=== PATIENT | female | born 1955 | race Caucasian/White ===

== ENCOUNTER 2016-05-24 10:18 | Emergency (ER) | payer SELFPAY ==
--- NOTE | 2016-05-24 11:33 | EDPHY ---
H & P Time Seen by Provider: 05/24/16 11:10 HPI/ROS: CHIEF COMPLAINT: Right hand discoloration and numbness HISTORY OF PRESENT ILLNESS: Patient is a 60-year-old female with multiple medical problems including COPD, high cholesterol and hypertension who presents to the emergency department with discoloration and numbness of her right hand. She woke this morning with numbness over all of her fingers in the right hand. She noted white discoloration on half of all of her fingers. "It is like when your hand is really cold." She thought maybe she slept on it wrong. She the water granddaughter to school. The coloration has now improved. She still has mild numbness over all of her fingers. She has no proximal arm discoloration or pain. She has chronic right shoulder pain. She denies headache or neck pain. She has no visual change. She denies other focal neurologic deficit. REVIEW OF SYSTEMS: My complete review of systems is negative except as mentioned in the HPI. Past Medical/Surgical History: Includes hypertension, high cholesterol, possible diabetes, COPD Past surgical history: Includes bowel resection, appendectomy, hysterectomy, right hand reconstructive surgery, left knee surgery Social history: The patient smokes. The patient had been living in the [facility] and is now staying with her family in [place]. She is not regularly follow up with the primary care physician. Smoking Status: Current every day smoker Physical Exam: 36.6, 145/82, 108, 17, 92% on room air GENERAL: Well-appearing, in no acute distress, alert. HEENT: Eyes normal to inspection, normal pharynx, no signs of dehydration. NECK: No thyromegaly, no lymphadenopathy, supple. RESPIRATORY: Coarse breath sounds throughout, no rales, rhonchi or wheezing. CVS: Regular rate and rhythm, no rubs, murmurs, or gallops. ABDOMEN: Soft, nontender, nondistended, no organomegaly. BACK: Normal to inspection, no CVA tenderness. SKIN: Normal color, no rash, warm, dry. No pallor. EXTREMITIES: No pedal edema, no calf tenderness. Patient's bilateral upper extremities appear normal. UE: Her skin is pink B hands. Brisk capillary refill B. Normal radial and ulnar pulses B. patient describes mildly decreased sensation in right palmar aspect of her fingers. Patient does have minimal clubbing. Normal motor exam. Patient has a normal brachial pulse bilaterally. Patient has no cords. NEURO/PSYCH: Alert and oriented x3, normal mood and affect. No obvious cranial nerve deficit. Constitutional: Initial Vital Signs Temperature (C) 36.6 C 05/24/16 10:29 Heart Rate 108 H 05/24/16 10:29 Respiratory Rate 17 05/24/16 10:29 Blood Pressure 145/82 H 05/24/16 10:29 O2 Sat (%) 92 05/24/16 10:29 O2 Delivery Mode Room Air Allergies/Adverse Reactions: honey Allergy (Verified 05/24/16 10:29) strawberry Allergy (Verified 05/24/16 10:29) sulfur dioxide Allergy (Verified 05/24/16 10:29) Home Medications: Medication Instructions Recorded NK [No Known Home Meds] 05/24/16 Medical Decision Making - Diagnostics EKG Interpretation: EKG shows normal sinus rhythm, normal rate, normal axis, normal intervals. There are no ST or T-wave abnormalities. EKG is normal as interpreted by me. ED Course/Re-evaluation: In the emergency department I discussed possible etiologies with the patient. I discussed the plan and answered all her questions. Carotid ultrasound: Please refer the dictated report by Dr. Ross Espino. No significant occlusion or abnormality. Head CT: No acute disease noted. Please refer the dictated report. I rechecked the patient. She was doing well. She had no focal deficits. Neurovascularly intact distally in her extremities. 1445: I went and evaluated the CT imaging with Dr. Mandujano. There is no focal occlusion or abnormality to the mid hand. The the timing of the contrast did not allow visualization through the complete vessel. On recheck the patient. She was doing well. She had no complaints. No focal neurologic deficits. Neurovascular intact distally. She was given warnings prior to leaving. She will return with worsening symptoms. Differential Diagnosis: My differential includes but is not limited to arterial occlusion, venous occlusion, disc herniation, brachial plexus injury, neurapraxia, CVA, dissection - Data Points Laboratory Results: Laboratory Results 05/24/16 11:55 05/24/16 11:55 05/24/16 05/24/16 05/24/16 11:55 11:55 11:55 WBC 7.48 10^3/uL 10^3/uL (3.80-9.50) RBC 5.13 10^6/uL 10^6/uL (4.18-5.33) Hgb 15.3 g/dL g/dL (12.6-16.3) Hct 46.5 % % (38.0-47.0) MCV 90.6 fL fL (81.5-99.8) MCH 29.8 pg pg (27.9-34.1) MCHC 32.9 g/dL g/dL (32.4-36.7) RDW 12.6 % % (11.5-15.2) Plt Count 218 10^3/uL 10^3/uL (150-400) MPV 11.2 fL fL (8.7-11.7) Neut % (Auto) 53.0 % % (39.3-74.2) Lymph % (Auto) 36.5 % % (15.0-45.0) [place] % (Auto) 7.1 % % (4.5-13.0) Eos % (Auto) 2.4 % % (0.6-7.6) Baso % (Auto) 0.7 % % (0.3-1.7) Nucleat RBC Rel Count 0.0 % % (0.0-0.2) Absolute Neuts (auto) 3.97 10^3/uL 10^3/uL (1.70-6.50) Absolute Lymphs (auto) 2.73 10^3/uL 10^3/uL (1.00-3.00) Absolute Monos (auto) 0.53 10^3/uL 10^3/uL (0.30-0.80) Absolute Eos (auto) 0.18 10^3/uL 10^3/uL (0.03-0.40) Absolute Basos (auto) 0.05 10^3/uL 10^3/uL (0.02-0.10) Absolute Nucleated RBC 0.00 10^3/uL 10^3/uL (0-0.01) Immature Gran % 0.3 % % (0.0-1.1) Immature Gran # 0.02 10^3/uL 10^3/uL (0.00-0.10) PT 12.8 SEC SEC (12.0-15.0) INR 0.97 (0.83-1.16) APTT 30.8 SEC SEC (23.0-38.0) Sodium 144 mEq/L mEq/L (134-144) Potassium 4.3 mEq/L mEq/L (3.5-5.2) Chloride 105 mEq/L mEq/L (97-110) Carbon Dioxide 29 mEq/l mEq/l (22-31) Anion Gap 10 mEq/L mEq/L (8-16) BUN 23 mg/dL mg/dL (7-23) Creatinine 0.6 mg/dL mg/dL (0.6-1.0) Estimated GFR > 60 Glucose 101 mg/dL H mg/dL (70-100) Calcium 9.5 mg/dL mg/dL (8.5-10.4) Departure - Departure Disposition: Home, Routine, Self-Care Clinical Impression: Paresthesia and pain of right extremity Condition: Good Instructions: Paresthesia (ED) Additional Instructions: Return with increasing numbness, weakness, headache, neck pain or any other concerns. Your CT angiogram of your arm did not show any clot. Your ultrasound of the neck was unremarkable. Referrals: [facility] [Provider Group] - 5-7 days, call for appt. Magy Villareal MD [Medical Doctor] - 5-7 days, call for appt.
--- NOTE | 2016-05-24 11:50 | CPEKG ---
Heart Rate: 91 RR Interval: 659 P-R Interval: 152 QRSD Interval: 70 QT Interval: 344 QTC Interval: 424 P [place]: 81 QRS [place]: 35 T Wave [place]: 73 EKG Severity - NORMAL ECG - EKG Impression: SINUS RHYTHM Electronically Signed By: Reshma Levy 24-May-2016 15:18:44
[2016-05-24 12:04] LABS: % IMMATURE GRANULYOCYTES 0.3 % (0.0-1.1); ABSOLUTE IMMATURE GRANULOCYTES 0.02 10^3/uL (0.00-0.10); ADD DIFF? NO; ADD MORPH? NO; ADD SCAN? NO; ATYPICAL LYMPHOCYTE FLAG 20 (0-99); FRAGMENT RBC FLAG 0 (0-99); HEMATOCRIT 46.5 % (38.0-47.0); HEMOGLOBIN 15.3 g/dL (12.6-16.3); LEFT SHIFT FLG 0 (0-99); LIPEMIA HEMOLYSIS FLAG 80 (0-99); MEAN CELL HEMOGLOBIN 29.8 pg (27.9-34.1); MEAN CELL HEMOGLOBIN CONCENTR. 32.9 g/dL (32.4-36.7); MEAN CELL VOLUME 90.6 fL (81.5-99.8); MEAN PLATELET VOLUME 11.2 fL (8.7-11.7); PLATELET CLUMPS FLAG 0 (0-99); PLATELET COUNT 218 10^3/uL (150-400); RED BLOOD CELL COUNT 5.13 10^6/uL (4.18-5.33); RED CELL DISTRIBUTION WIDTH 12.6 % (11.5-15.2)
[2016-05-24 12:14] LABS: INR 0.97 (0.83-1.16); PROTIME(PATIENT) 12.8 SEC (12.0-15.0)
[2016-05-24 12:15] LABS: APTT 30.8 SEC (23.0-38.0)
[2016-05-24 12:21] LABS: ANION GAP 10 mEq/L (8-16); CALCIUM 9.5 mg/dL (8.5-10.4); CARBON DIOXIDE 29 mEq/l (22-31); CHLORIDE 105 mEq/L (97-110); CREATININE 0.6 mg/dL (0.6-1.0); GLOMERULAR FILTRATION RATE > 60; GLUCOSE 101 mg/dL (70-100); POTASSIUM 4.3 mEq/L (3.5-5.2); SODIUM 144 mEq/L (134-144)
[2016-05-24] MEDS ORDERED: IOPAMIDOL (ISOVUE 370) 100 ML BTL IV ONE (12:32)
[2016-05-24 14:48] VITALS: BP 119/90; PULSE 97; TEMP 98.2; O2SAT 90
[2016-05-24 14:59] VITALS: RESP 16
== END 2016-05-24 15:15 | disposition home or self-care (01) ==
DX: R20.2 Paresthesia of skin (principal); I10 Essential (primary) hypertension; J44.9 Chronic obstructive pulmonary disease, unspecified; F17.200 Nicotine dependence, unspecified, uncomplicated
CPT/HCPCS: Q9967

== ENCOUNTER 2016-08-16 21:14 | Inpatient (IN) | payer MEDICAID ==
--- NOTE | 2016-08-16 21:33 | CPEKG ---
Heart Rate: 110 RR Interval: 545 P-R Interval: 124 QRSD Interval: 76 QT Interval: 324 QTC Interval: 439 P [place]: 82 QRS [place]: 18 T Wave [place]: 65 EKG Severity - OTHERWISE NORMAL ECG - EKG Impression: SINUS TACHYCARDIA Electronically Signed By: Edwardo Edwards 16-Aug-2016 23:13:29
[2016-08-16] MEDS ORDERED: methylPREDNISolone SOD SUCC 125 MG/2 ML VIAL IVP ONE (21:40)
[2016-08-16] MEDS ORDERED: ALBUTEROL 3 ML DEYVIAL IH ONE (21:40)
[2016-08-16] MEDS ORDERED: IPRATROPIUM/ALBUTEROL 3 ML DEYVIAL IH ONE (21:40)
[2016-08-16] MEDS ORDERED: NS 500 ML IV ONE (21:40)
--- NOTE | 2016-08-16 21:45 | EDPHY ---
H & P Time Seen by Provider: 08/16/16 21:37 HPI/ROS: HPI COPD exacerbation, cough, fever. 61-year-old female by ambulance from home. Patient has a long history of COPD. Patient presents with complaint of worsening cough, fever, difficulty breathing over the last 2-3 days. She reports she quit smoking 2-3 days ago. She also complains of a swelling on the left lateral aspect of her neck. Cough noted to be productive of yellowish green sputum. ROS: Constitutional: As above, no chills. No weakness. Eyes: No discharge. No changes in vision. ENT: No sore throat. No nasal congestion or rhinorrhea. Respiratory: As above. Cardiac: No chest pain, no palpitations. Gastrointestinal: No abdominal pain, no vomiting, no diarrhea. Genitourinary: No hematuria. No dysuria or increased frequency with urination. Musculoskeletal: No back pain. No neck pain. No myalgias or arthralgias. As above. Skin: No rashes. Neurological: No headache. No focal weakness or altered sensation. Past medical history: Bowel resection, hysterectomy appendectomy, left knee surgery, right hand surgery. She is not regularly followed by primary care physician. Social history: Former smoker. She says she quit 2 days ago. She is currently living with her family. No alcohol. Physical Exam: General Appearance: Alert, dyspneic. Mildly anxious. This patient is responding to questions appropriately and in full sentences. This patient appears well-hydrated and well-nourished. Eyes: Pupils equal and round no pallor or injection. No lid edema, erythema or injection. Respiratory: There are no retractions, decreased air movement throughout. Scant rhonchi mid lung michael bilaterally. No tachypnea. Cardiovascular: Regular rate and rhythm. No murmur. Gastrointestinal: Abdomen is soft and nontender, no masses, bowel sounds normal. No focal tenderness at McBurney's point. No Love sign. Neurological: Motor sensory function is grossly intact. Cranial nerves are normal. Gait is normal. Skin: Warm and dry, no rashes. Musculoskeletal: Neck is supple and nontender. Extremities are symmetrical. All joints range without pain or impingement. Psychiatric: No agitation. No depression. Database: EKG: EKG time is 9:32 p.m.; EKG shows a narrow complex sinus tachycardia with a ventricular rate of 110. The [place], QRS, QT intervals are within normal limits. There are no ST-T wave changes indicative of ischemic or injury pattern. No evidence of right heart strain. Interpreted by me. Imaging: Chest x-ray PA and lateral; the cardiac mediastinal silhouette is unremarkable. No evidence of infiltrate or pneumothorax. Bronchitis. No other acute cardiopulmonary disease process noted. Interpreted by me. Procedures: Emergency department course: IV placed. She was placed on a construction skills teacher. She was placed on oxygen at 2 L by nasal cannula. She was sent for a PA and lateral chest x-ray from triage. EKG was performed. On return from x-ray she was started on albuterol/ Atrovent nebulizers x2. She was given 125 mg of IV Solu-Medrol. 10:45 p.m., patient re-evaluated. Feeling better at this time. Pulse oximetry on 2 and 0.5 L of nasal cannula oxygen 93 to 95%. No tachypnea. He remains mildly tachycardic of 105-110. She was borderline febrile in triage. She was started on IV Levaquin in the emergency department. Blood cultures were drawn. 10:55 p.m., spoke with on-call hospitalist, Dr. Bey, she accepts the patient for admission. The patient's remaining emergency department course under my care has been uneventful. She was admitted in stable condition to the hospitalist service. Differential Diagnosis: The differential diagnosis on this patient includes but is not limited to COPD exacerbation, bronchitis, pneumonia. This represents a partial list of diagnoses considered. These considerations are based on history, physical exam , past history, reassessment and diagnostic testing. Smoking Status: Current every day smoker Constitutional: Initial Vital Signs Temperature (C) 37.6 C 08/16/16 21:18 Heart Rate 112 H 08/16/16 21:18 Respiratory Rate 16 08/16/16 21:18 Blood Pressure 141/81 H 08/16/16 21:18 O2 Sat (%) 90 L 08/16/16 21:18 O2 Delivery Mode Room Air O2 (L/minute) 2 Allergies/Adverse Reactions: honey Allergy (Verified 05/24/16 10:29) Latex, Natural Rubber Allergy (Verified 08/16/16 21:18) strawberry Allergy (Verified 05/24/16 10:29) sulfur dioxide Allergy (Verified 05/24/16 10:29) Home Medications: Medication Instructions Recorded NK [No Known Home Meds] 05/24/16 Medical Decision Making - Diagnostics Imaging Results: Imaging Impressions Chest X-Ray 08/16/16 21:35 Impression: 1. Bronchitis/airways disease. 2. No definite focal pneumonia. - Data Points Laboratory Results: Laboratory Results 08/16/16 21:30 08/16/16 21:30 08/16/16 08/16/16 21:30 21:30 WBC 8.76 10^3/uL 10^3/uL (3.80-9.50) RBC 4.76 10^6/uL 10^6/uL (4.18-5.33) Hgb 14.3 g/dL g/dL (12.6-16.3) Hct 42.2 % % (38.0-47.0) MCV 88.7 fL fL (81.5-99.8) MCH 30.0 pg pg (27.9-34.1) MCHC 33.9 g/dL g/dL (32.4-36.7) RDW 12.6 % % (11.5-15.2) Plt Count 236 10^3/uL 10^3/uL (150-400) MPV 11.3 fL fL (8.7-11.7) Neut % (Auto) 58.0 % % (39.3-74.2) Lymph % (Auto) 29.2 % % (15.0-45.0) [place] % (Auto) 8.6 % % (4.5-13.0) Eos % (Auto) 2.7 % % (0.6-7.6) Baso % (Auto) 0.8 % % (0.3-1.7) Nucleat RBC Rel Count 0.0 % % (0.0-0.2) Absolute Neuts (auto) 5.08 10^3/uL 10^3/uL (1.70-6.50) Absolute Lymphs (auto) 2.56 10^3/uL 10^3/uL (1.00-3.00) Absolute Monos (auto) 0.75 10^3/uL 10^3/uL (0.30-0.80) Absolute Eos (auto) 0.24 10^3/uL 10^3/uL (0.03-0.40) Absolute Basos (auto) 0.07 10^3/uL 10^3/uL (0.02-0.10) Absolute Nucleated RBC 0.00 10^3/uL 10^3/uL (0-0.01) Immature Gran % 0.7 % % (0.0-1.1) Immature Gran # 0.06 10^3/uL 10^3/uL (0.00-0.10) Sodium 136 mEq/L mEq/L (134-144) Potassium 4.1 mEq/L mEq/L (3.5-5.2) Chloride 100 mEq/L mEq/L (97-110) Carbon Dioxide 25 mEq/l mEq/l (22-31) Anion Gap 11 mEq/L mEq/L (8-16) BUN 9 mg/dL mg/dL (7-23) Creatinine 0.7 mg/dL mg/dL (0.6-1.0) Estimated GFR > 60 Glucose 86 mg/dL mg/dL (70-100) Calcium 9.3 mg/dL mg/dL (8.5-10.4) Troponin I < 0.012 ng/mL ng/mL (0-0.034) NT-Pro-B Natriuret Pep 348 pg/mL H pg/mL (0-125) Medications Given: Discontinued Medications Albuterol (Proventil Neb) 6 ml IH EDNOW ONE Stop: 08/16/16 21:41 Last Admin: 08/16/16 21:50 Dose: Not Given Albuterol/Ipratropium (Duoneb) 6 ml I[facility] EDNOW ONE Stop: 08/16/16 21:41 Last Admin: 08/16/16 21:57 Dose: 6 ml Sodium Chloride (Ns) 500 mls @ 1,000 mls/hr IV ONCE ONE PRN Reason: Protocol Stop: 08/16/16 22:09 Last Admin: 08/16/16 21:57 Dose: 500 mls Methylprednisolone Sodium Succinate (Solu-Medrol) 125 mg IVP EDNOW ONE Stop: 08/16/16 21:41 Last Admin: 08/16/16 21:57 Dose: 125 mg Departure - Departure Disposition: [facility] Clinical Impression: COPD exacerbation, Bronchitis, Hypoxia Referrals: NONE *PRIMARY CARE P,. [Primary Care Provider] - As per Instructions
[2016-08-16 21:46] LABS: % IMMATURE GRANULYOCYTES 0.7 % (0.0-1.1); ABSOLUTE IMMATURE GRANULOCYTES 0.06 10^3/uL (0.00-0.10); ADD DIFF? NO; ADD MORPH? NO; ADD SCAN? NO; ATYPICAL LYMPHOCYTE FLAG 80 (0-99); FRAGMENT RBC FLAG 0 (0-99); HEMATOCRIT 42.2 % (38.0-47.0); HEMOGLOBIN 14.3 g/dL (12.6-16.3); LEFT SHIFT FLG 0 (0-99); LIPEMIA HEMOLYSIS FLAG 90 (0-99); MEAN CELL HEMOGLOBIN CONCENTR. 33.9 g/dL (32.4-36.7); MEAN CELL VOLUME 88.7 fL (81.5-99.8); MEAN PLATELET VOLUME 11.3 fL (8.7-11.7); PLATELET CLUMPS FLAG 0 (0-99); PLATELET COUNT 236 10^3/uL (150-400); RED BLOOD CELL COUNT 4.76 10^6/uL (4.18-5.33); RED CELL DISTRIBUTION WIDTH 12.6 % (11.5-15.2)
[2016-08-16 21:58] LABS: ANION GAP 11 mEq/L (8-16); CALCIUM 9.3 mg/dL (8.5-10.4); CARBON DIOXIDE 25 mEq/l (22-31); CHLORIDE 100 mEq/L (97-110); CREATININE 0.7 mg/dL (0.6-1.0); GLOMERULAR FILTRATION RATE > 60; GLUCOSE 86 mg/dL (70-100); POTASSIUM 4.1 mEq/L (3.5-5.2); SODIUM 136 mEq/L (134-144)
[2016-08-16 22:11] LABS: TROPONIN I < 0.012 ng/mL (0-0.034)
[2016-08-16] MEDS ORDERED: ONDANSETRON DISINTEGRATING 4 MG TAB PO PRN (23:15)
[2016-08-16] MEDS ORDERED: ONDANSETRON 4 MG/2 ML VIAL IVP PRN (23:15)
[2016-08-16] MEDS ORDERED: ACETAMINOPHEN 325 MG TAB PO PRN (23:15)
[2016-08-16] MEDS ORDERED: ALBUTEROL 3 ML DEYVIAL IH PRN (23:15)
--- NOTE | 2016-08-16 23:22 | PDGENHP ---
History and Physical - Chief Complaint shortness of breath - History of Present Illness Patient is a 61 year old female with COPD, CAD, ? chf who presents to the ED with complaint of shortness of breath. Patient states symptoms started about 3 days ago with initially nonproductive cough, generalized fatigue and lack of appetite. Over the following days she reports intermittent chills, generalized body aches and increasing shortness of breath, wheezing and cough, which became productive of yellow/green sputum. Today she felt significantly fatigued, weak and short of breath, so she decided to come to the ED for further evaluation. She denies any obvious recent sick contacts, recent travel or prolonged immobilization. On arrival to the ED, patient was afebrile, mildly tachycardic and hypoxic on room air. She had significant wheezing on exam, so she was given IV steroids, duonebs with significant improvement. CXR did not reveal any obvious infiltrate. EKG showed sinus tachycardia without obvious ischemia. Labs showed normal cbc, bmp and negative troponin. She was then admitted to the hospitalist service for further management. History Information - Allergies/Home Medication List Allergies/Adverse Reactions: honey Allergy (Verified 05/24/16 10:29) Latex, Natural Rubber Allergy (Verified 08/16/16 21:18) strawberry Allergy (Verified 05/24/16 10:29) sulfur dioxide Allergy (Verified 05/24/16 10:29) Home Medications: NK [No Known Home Meds] 05/24/16 [Last Taken Unknown] I have personally reviewed and updated: family history, medical history, social history, surgical history - Past Medical History Additional medical history: COPD. nonobstructive CAD. ? history of CHF. history of complicated small bowel obstruction - Surgical History Additional surgical history: ex-lap for SBO. BRANDON-BSO. appendectomy - Family History Positive for: non-pertinent - Social History Smoking Status: Current every day smoker (formerly 2-3 PPD x 20 years, now down to 5 cigarettes/day) Alcohol Use: None Drug Use: None Additional social history: Patient originally from [place], moved to [place] 1 year ago, lives with her daughter Review of Systems ROS: 10pt was reviewed & negative except for what was stated in HPI & below Physical Exam Temp Pulse Resp BP Pulse Ox 37.6 C 103 H 18 141/81 H 95 08/16/16 21:18 08/16/16 22:00 08/16/16 22:00 08/16/16 21:18 08/16/16 22:00 Constitutional: no apparent distress, appears nourished, not in pain Eyes: PERRL, anicteric sclera, EOMI Ears, Nose, Mouth, Throat: hearing normal, ears appear normal, no oral mucosal ulcers, dry mucous membranes Cardiovascular: regular rate and rhythym, no murmur, rub, or gallop, pulses symmetric bilaterally, No JVD, No edema Peripheral Pulses: 2+: dorsalis-pedis (R), dorsalis-pedis (L) Respiratory: no respiratory distress, no rales or rhonchi, expiratory wheeze ( faint exp wheezing diffusely) Gastrointestinal: normoactive bowel sounds, soft, non-tender abdomen, no palpable masses, No guarding, No rebound Genitourinary: no bladder fullness, no bladder tenderness Skin: warm, normal color, no rashes or abrasions, no fluctuance, no induration, No mottled Musculoskeletal: full muscle strength, no muscle tenderness, normal joint ROM, no joint effusions Neurologic: AAOx3, sensation intact bilaterally, CN II-XII Intact, No weakness, No numbness, No pronator drift, No facial droop Psychiatric: interacting appropriately, not anxious, not encephalopathic, thought process linear Lab Data & Imaging Review 08/16/16 21:30 08/16/16 21:30 WBC 8.76 10^3/uL (3.80-9.50) 08/16/16 21:30 RBC 4.76 10^6/uL (4.18-5.33) 08/16/16 21:30 Hgb 14.3 g/dL (12.6-16.3) 08/16/16 21:30 Hct 42.2 % (38.0-47.0) 08/16/16 21:30 MCV 88.7 fL (81.5-99.8) 08/16/16 21:30 MCH 30.0 pg (27.9-34.1) 08/16/16 21:30 MCHC 33.9 g/dL (32.4-36.7) 08/16/16 21:30 RDW 12.6 % (11.5-15.2) 08/16/16 21:30 Plt Count 236 10^3/uL (150-400) 08/16/16 21:30 MPV 11.3 fL (8.7-11.7) 08/16/16 21:30 Neut % (Auto) 58.0 % (39.3-74.2) 08/16/16 21:30 Lymph % (Auto) 29.2 % (15.0-45.0) 08/16/16 21:30 [place] % (Auto) 8.6 % (4.5-13.0) 08/16/16 21:30 Eos % (Auto) 2.7 % (0.6-7.6) 08/16/16 21:30 Baso % (Auto) 0.8 % (0.3-1.7) 08/16/16 21:30 Nucleat RBC Rel Count 0.0 % (0.0-0.2) 08/16/16 21:30 Absolute Neuts (auto) 5.08 10^3/uL (1.70-6.50) 08/16/16 21:30 Absolute Lymphs (auto) 2.56 10^3/uL (1.00-3.00) 08/16/16 21:30 Absolute Monos (auto) 0.75 10^3/uL (0.30-0.80) 08/16/16 21:30 Absolute Eos (auto) 0.24 10^3/uL (0.03-0.40) 08/16/16 21:30 Absolute Basos (auto) 0.07 10^3/uL (0.02-0.10) 08/16/16 21:30 Absolute Nucleated RBC 0.00 10^3/uL (0-0.01) 08/16/16 21:30 Immature Gran % 0.7 % (0.0-1.1) 08/16/16 21:30 Immature Gran # 0.06 10^3/uL (0.00-0.10) 08/16/16 21:30 Sodium 136 mEq/L (134-144) 08/16/16 21:30 Potassium 4.1 mEq/L (3.5-5.2) 08/16/16 21:30 Chloride 100 mEq/L (97-110) 08/16/16 21:30 Carbon Dioxide 25 mEq/l (22-31) 08/16/16 21:30 Anion Gap 11 mEq/L (8-16) 08/16/16 21:30 BUN 9 mg/dL (7-23) 08/16/16 21:30 Creatinine 0.7 mg/dL (0.6-1.0) 08/16/16 21:30 Estimated GFR > 60 08/16/16 21:30 Glucose 86 mg/dL (70-100) 08/16/16 21:30 Calcium 9.3 mg/dL (8.5-10.4) 08/16/16 21:30 Troponin I < 0.012 ng/mL (0-0.034) 08/16/16 21:30 NT-Pro-B Natriuret Pep 348 pg/mL (0-125) H 08/16/16 21:30 Visualized and Interpreted Chest x-ray results: Yes Chest X-Ray results: no infiltrate, other (possible bronchitis) Visualized and Interpreted EKG results: Yes EKG additional interpertation: sinus tachycardia, no obvious st/twave changes Assessment & Plan Assessment: Patient is a 61 year old female with COPD, CAD who presents to the ED with complaint of fever, chills, shortness of breath and wheezing. ED evaluation is consistent with acute copd exacerbation, likely triggered by an viral URI. Plan: # acute hypoxic respiratory failure Patient's presenting symptoms and improvement with steroids/nebs appears consistent with an acute COPD exacerbation. Differential also includes pneumonia , acs, pe. CXR is negative for obvious infiltrate, she has no leukocytosis on cbc. She is tachycardic, but has no other risk factors for PE. Will check D- dimer, TTE, respiratory viral panel and continue treatment for copd exacerbation. Will also continue azithromycin. - f/u resp viral panel - solumedrol 60 mg q6h - duonebs standing q6h, neb q2 prn - f/u d-dimer, TTE, monitor HR # CAD/?CHF Denies any chest pain, EKG is nonischemic, initial troponin is negative. Will continue to monitor troponins, EKGs and will f/u TTE. # dispo: admit to inpatient status for > 2 [place] stay # gen: regular diet DVT ppx: lovenox Full code
[2016-08-17 04:55] LABS: % IMMATURE GRANULYOCYTES 0.8 % (0.0-1.1); ABSOLUTE IMMATURE GRANULOCYTES 0.05 10^3/uL (0.00-0.10); ADD DIFF? NO; ADD MORPH? NO; ADD SCAN? NO; ATYPICAL LYMPHOCYTE FLAG 40 (0-99); FRAGMENT RBC FLAG 0 (0-99); HEMATOCRIT 39.2 % (38.0-47.0); HEMOGLOBIN 13.1 g/dL (12.6-16.3); LEFT SHIFT FLG 10 (0-99); LIPEMIA HEMOLYSIS FLAG 80 (0-99); MEAN CELL HEMOGLOBIN CONCENTR. 33.4 g/dL (32.4-36.7); MEAN CELL VOLUME 89.9 fL (81.5-99.8); MEAN PLATELET VOLUME 11.4 fL (8.7-11.7); PLATELET CLUMPS FLAG 0 (0-99); PLATELET COUNT 220 10^3/uL (150-400); RED BLOOD CELL COUNT 4.36 10^6/uL (4.18-5.33); RED CELL DISTRIBUTION WIDTH 12.7 % (11.5-15.2)
[2016-08-17 05:03] LABS: INR 1.1 (0.83-1.16); PROTIME(PATIENT) 14.1 SEC (12.0-15.0)
[2016-08-17 05:09] LABS: ANION GAP 9 mEq/L (8-16); CARBON DIOXIDE 24 mEq/l (22-31); CHLORIDE 105 mEq/L (97-110); CREATININE 0.6 mg/dL (0.6-1.0); GLOMERULAR FILTRATION RATE > 60; GLUCOSE 213 mg/dL (70-100); MAGNESIUM 2.2 mg/dL (1.6-2.3); POTASSIUM 4.3 mEq/L (3.5-5.2); SODIUM 138 mEq/L (134-144)
[2016-08-17 05:16] LABS: TROPONIN I < 0.012 ng/mL (0-0.034)
[2016-08-17 05:20] LABS: CREATINE KINASE-MB FRACTION < 0.22 ng/mL (0-3.19)
[2016-08-17] MEDS: IPRATROPIUM/ALBUTEROL 3 ML DEYVIAL IH SCH ×5 (05:27→21:26)
[2016-08-17] MEDS: methylPREDNISolone SOD SUCC 40 MG/ML VIAL IVP SCH ×3 (06:14→21:08)
[2016-08-17] MEDS: NS 1,000 ML IV SCH ×2 (06:14→22:55)
[2016-08-17] MEDS: AZITHROMYCIN IV 500 MG in D5W 250 ML IV SCH (08:46)
[2016-08-17] MEDS: ENOXAPARIN 40 MG/0.4 ML SYR SC SCH (08:55)
--- NOTE | 2016-08-17 09:25 | CPEKG ---
Heart Rate: 74 RR Interval: 811 P-R Interval: 148 QRSD Interval: 84 QT Interval: 408 QTC Interval: 453 P [place]: 73 QRS [place]: 51 T Wave [place]: 59 EKG Severity - BORDERLINE ECG - EKG Impression: SINUS RHYTHM EKG Impression: LOW VOLTAGE THROUGHOUT Electronically Signed By: Rajan Miramontes 17-Aug-2016 16:52:58
--- NOTE | 2016-08-17 10:54 | ECHO ---
[id number] + + [address] : : [place] [address] : : [phone] + + Adult Echocardiographic Report + -+ :Name: TEJA WRIGHT LStudy Date: 08/17/2016 09:51 AM : : Hospital Admission Number: [id number] Location: 14 6: :: 1955 Gender: Female Height: 67 in : :Age: 61 yrs Race: WH Weight: 180 lb : :Reason For Study: hypoxia : : BSA: 1.9 meters2 : :History: h/o chf : + -+ MMode/2D Measurements \T\ Calculations IVSd: 0.74 cm LVIDd: 4.3 cm FS: 42.1 % Ao root diam: LVPWd: 0.89 cm LVIDs: 2.5 cm EDV(Teich): 2.3 cm 83.1 ml ESV(Teich): 22.1 ml EF(Teich): 73.4 % LVLd ap4: 7.6 cm SV(MOD-sp4): EDV(MOD-sp4): 59.0 ml 100.0 ml LVLs ap4: 6.4 cm ESV(MOD-sp4): 41.0 ml EF(MOD-sp4): 59.0 % Normal Measurement Values: + + :LVIDd (3.5-5.7cm) IVSd (0.6-1.1cm) LVPWd (0.6-1.1cm) Aortic Root (2.0-3.7cm)Left Atrium (1.5-4.0cm): :LV Vol(d) (76-115ml) LV Vol(s) (29-48ml) Ejec Fraction (50-65%)PV Edgardo (0.6- 1.2m/s) TV Edgardo (0.4-1.0m/s) : :MV E [place]ardo (0.8-1.0m/s)MV A Edgardo (0.3-1.0m/s)LVOT Edg[place] (0.7-1.2m/s) Asc Ao Edgardo ( 0.9-1.8m/s) : + + Doppler Measurements \T\ Calculations MV E max edgardo: Ao V2 max: LV V1 max: PA V2 max: 90.3 cm/sec 94.1 cm/sec 81.4 cm/sec 60.8 cm/sec MV A max edgardo: Ao max PG: LV V1 max PG: PA max P.0 cm/sec 3.5 mmHg 2.7 mmHg 1.5 mmHg MV E/A: 1.1 MV dec time: 0.16 sec TR max edgardo: 245.0 cm/sec TR max P.0 mmHg RAP systole: 5.0 mmHg RVSP(TR): 29.0 mmHg Left Ventricle The left ventricle is normal in size and function. There is normal left ventricular wall thickness. Ejection Fraction = 65-70%. No regional wall motion abnormalities noted. Right Ventricle The right ventricle is normal in size and function. Atria The left atrial size is normal. Right atrial size is normal. Mitral Valve The mitral valve is normal in structure and function. There is no mitral valve stenosis. There is mild to moderate mitral regurgitation. Tricuspid Valve The tricuspid valve is normal in structure and function. There is no tricuspid stenosis. There is mild tricuspid regurgitation. Right ventricular systolic pressure is 29mmHg. Aortic Valve The aortic valve is trileaflet. There is no aortic stenosis. There is no aortic insufficiency. Pulmonic Valve The pulmonic valve is not well visualized. Great Vessels The aortic root is normal size. Pericardium/Pleural There is no pericardial effusion. Conclusion A two-dimensional transthoracic echocardiogram with M-mode and Doppler was performed. The study was technically difficult. The left ventricle is normal in size and function. Ejection Fraction = 65-70%. There is mild to moderate mitral regurgitation. There is mild tricuspid regurgitation. Right ventricular systolic pressure is 29mmHg. No prior echo Final Reading Physician: Jeffry Cummings signed on 08/17/2016 10:52 AM Ordering Physician: Lily Bey Performed By: Elizabeth Juárez
--- NOTE | 2016-08-17 11:12 | HOSPPROG ---
Hospitalist Progress Note Assessment/Plan: DIAGNOSES: -Acute hypoxemic respiratory failure -Pleuritic chest pain with high D-dimer -Absence of fever -History of COPD -History of nonobstructive coronary artery disease As she is really not very wheezy and still short of breath today and is now describing pleuritic chest pain with high D-dimer done yesterday in the ER will certainly need to rule out PE which is present in more than 10% of acute COPD exacerbations. I do not really see significant support for diagnosing a bacterial infection but waiting for viral respiratory panel PLANS: -viral respiratory panel testing has not been done yet so I reviewed with the nurse need to get sample for that -CT angiogram of chest is ordered to rule out PE -Continue bronchodilators and steroids at this point SUBJECTIVE: Slightly better than yesterday but remain short of breath with cough, no chills or sweats This morning she does describe pleuritic chest pain in the upper central anterior chest No leg pain or swelling Nothing that sounds like angina OBJECTIVE Vitals reviewed: Exam: alert oriented skin warm dry color ok resps not labored lungs clear BSs slightly diminished but without notably prolonged expiration; no wheeze rales or rhonchi heart regular abd soft nondistended nontender, bowel sounds present limbs warm, no edema iv site ok Objective: Vital Signs Temp Pulse Resp BP Pulse Ox 36.6 C 80 16 105/63 94 08/17/16 08:03 08/17/16 08:03 08/17/16 08:03 08/17/16 08:03 08/17/16 08:03 Laboratory Results 08/17/16 04:26 08/17/16 04:26 08/16/16 08/17/16 08/18/16 06:59 06:59 06:59 Intake Total 500 Balance 500 PT 14.1 SEC (12.0-15.0) 08/17/16 04:26 INR 1.10 (0.83-1.16) 08/17/16 04:26 - Time Spent With Patient Time Spent with Patient: greater than 35 minutes Time Spent with Patient: Greater than 35 minutes spent on this patients care, greater than 50% of time spent counseling, educating, and coordinating care regarding the above mentioned plan. ICD10 Worksheet Patient Problems: Problems Problem Status Onset Bronchitis Acute COPD exacerbation Acute Hypoxia Acute
[2016-08-17] MEDS ORDERED: IOPAMIDOL (ISOVUE 370) 100 ML BTL IV ONE (11:22)
[2016-08-17] MEDS: NICOTINE 14 MG/24 HR PATCH TD SCH (17:54)
[2016-08-17] MEDS: HYDROCODONE/APAP 5/325 TAB PO PRN (21:18)
[2016-08-18] MEDS: methylPREDNISolone SOD SUCC 40 MG/ML VIAL IVP SCH ×3 (05:07→21:17)
[2016-08-18] MEDS: IPRATROPIUM/ALBUTEROL 3 ML DEYVIAL IH SCH ×4 (05:16→20:42)
[2016-08-18] MEDS: HYDROCODONE/APAP 5/325 TAB PO PRN ×3 (08:24→22:19)
[2016-08-18] MEDS: NICOTINE 14 MG/24 HR PATCH TD SCH (08:24)
[2016-08-18] MEDS: ENOXAPARIN 40 MG/0.4 ML SYR SC SCH (08:25)
[2016-08-18] MEDS: AZITHROMYCIN IV 500 MG in D5W 250 ML IV SCH (09:29)
--- NOTE | 2016-08-18 14:51 | HOSPPROG ---
Hospitalist Progress Note Assessment/Plan: DIAGNOSES: -Acute hypoxemic respiratory failure -Pleuritic chest pain with high D-dimer -Absence of fever -History of COPD -History of nonobstructive coronary artery disease PE is ruled out [place] is ruled out She continues to have symptoms out of proportion to her exam, and now with the history as described below we need to do a coronary risk stratification. Will order a lexiscan stress (tomorrow as she has been drinking coffee) PLANS: -viral respiratory panel testing has not been done yet so I reviewed with the nurse need to get sample for that -CT angiogram of chest is ordered to rule out PE -Continue bronchodilators and steroids at this point SUBJECTIVE: yesterday's EKG was normal, and CT chest with no PE, some signs of emphysema resting dyspnea slightly better than yest today she does not have the pleuritic pain described yesterday however she now tells me that for past two months she has had marked exertional dyspnea accompanied by a chest pressure, can only go up 1/2 flight of stairs before stopping for those symptoms and has trouble getting across a room which is a notable change for her OBJECTIVE Vitals reviewed: mild regular tachycardia 102-104, otherwise stable without fever Exam: alert oriented skin warm dry color ok resps not labored lungs clear BSs slightly diminished but without notably prolonged expiration; no wheeze rales or rhonchi heart regular abd soft nondistended nontender, bowel sounds present limbs warm, no edema iv site ok Objective: Vital Signs Temp Pulse Resp BP Pulse Ox 36.6 C 80 16 101/57 L 94 08/18/16 11:50 08/18/16 11:50 08/18/16 11:50 08/18/16 11:50 08/18/16 11:50 Microbiology 08/17/16 10:55 Respiratory Panel (PCR) - Final Nasal, Sinus - [place] Viral Transport No Organism Detected Laboratory Results 08/17/16 04:26 08/17/16 04:26 08/17/16 08/18/16 08/19/16 06:59 06:59 06:59 Intake Total 500 1680 Balance 500 1680 PT 14.1 SEC (12.0-15.0) 08/17/16 04:26 INR 1.10 (0.83-1.16) 08/17/16 04:26 - Time Spent With Patient Time Spent with Patient: greater than 35 minutes Time Spent with Patient: Greater than 35 minutes spent on this patients care, greater than 50% of time spent counseling, educating, and coordinating care regarding the above mentioned plan. ICD10 Worksheet Patient Problems: Problems Problem Status Onset Bronchitis Acute COPD exacerbation Acute Hypoxia Acute
[2016-08-18] MEDS: NS 1,000 ML IV SCH (16:00)
[2016-08-19] MEDS: methylPREDNISolone SOD SUCC 40 MG/ML VIAL IVP SCH ×2 (05:07→13:52)
[2016-08-19] MEDS: NS 1,000 ML IV SCH (05:08)
[2016-08-19] MEDS: IPRATROPIUM/ALBUTEROL 3 ML DEYVIAL IH SCH ×4 (05:24→21:50)
[2016-08-19] MEDS ORDERED: REGADENOSON 0.4 MG/5 ML SYR IVP ONE (09:25)
--- NOTE | 2016-08-19 10:36 | CPR ---
[f rep st] NONINVASIVE CARDIAC PROCEDURE REPORT DATE OF PROCEDURE: 08/19/2016 PROCEDURE PERFORMED: Lexiscan Cardiolite stress test. INDICATIONS: Chest pain. Evaluate for cardiac ischemia. CONSENT: Signed. Risks, benefits, and alternatives discussed with patient. She wishes to proceed. TECHNICAL DIFFICULTIES: None. DESCRIPTION OF PROCEDURE: The patient was initially in normal sinus rhythm with a heart rate of 74 beats per minute and a resting blood pressure of 128/80. Her EKG demonstrated normal sinus rhythm, with no ST-T wave abnormalities. 0.4 mg of IV Lexiscan was infused over a standard 1 minute protocol. 25 millicuries of technetium-9 9m was then injected. The patient's heart rate increased to 120 beats per minute and blood pressure dropped to 135/82. There were no EKG changes at peak Lexiscan infusion. All of her vital signs returned to normal at the end of recovery. She had mild nausea ,but no chest pain with Lexiscan infusion. Cardiolite images are pending. FINAL IMPRESSION: 1. Indeterminate electrocardiogram portion of stress test secondary to inability to reach target he art rate. 2. Cardiolite images pending. COMPLICATIONS: None. /[id number]/MODL
[2016-08-19] MEDS: AZITHROMYCIN IV 500 MG in D5W 250 ML IV SCH (12:54)
[2016-08-19] MEDS: ENOXAPARIN 40 MG/0.4 ML SYR SC SCH (12:54)
[2016-08-19] MEDS: NICOTINE 14 MG/24 HR PATCH TD SCH (12:57)
--- NOTE | 2016-08-19 14:53 | HOSPPROG ---
Hospitalist Progress Note Assessment/Plan: DIAGNOSES: -Acute on chronic hypoxemic respiratory failure -chest pain with high D-dimer -Absence of fever -History of COPD -History of nonobstructive coronary artery disease PE is ruled out [place] is ruled out She continues to have symptoms out of proportion to her exam, and now with the history as described below we need to do a coronary risk stratification. To complete lexiscan/myocardial imaging tomorrow PLANS: heat and elevation for L arm; may need to replace IV, but needs iv present for imaging in am resting myocardial perfusion imaging tomorrow continue steroid and bronchodilators SUBJECTIVE: main complaint today is pain in L forearm proximal to her IV (this was a new cath placed last evening) pain started this afternoon, rated as severe by pt does not hurt when medications or flushes given OBJECTIVE Vitals reviewed: tachycardia resolved, pulse in 70s, otherwise stable without fever Exam: alert oriented skin warm dry color ok resps not labored lungs clear BSs slightly diminished but without notably prolonged expiration; no wheeze rales or rhonchi heart regular abd soft nondistended nontender, bowel sounds present limbs L arm peripheral IV looks ok, no phlebitis, cord, cellulitis, bleed or bruise, or other concerning findings iv site ok Objective: Vital Signs Temp Pulse Resp BP Pulse Ox 36.7 C 76 18 151/79 H 97 08/19/16 11:27 08/19/16 11:39 08/19/16 11:39 08/19/16 11:27 08/19/16 11:39 Laboratory Results 08/17/16 04:26 08/17/16 04:26 08/18/16 08/19/16 08/20/16 06:59 06:59 06:59 Intake Total 1680 630 Balance 1680 630 PT 14.1 SEC (12.0-15.0) 08/17/16 04:26 INR 1.10 (0.83-1.16) 08/17/16 04:26 ICD10 Worksheet Patient Problems: Problems Problem Status Onset Bronchitis Acute COPD exacerbation Acute Hypoxia Acute
[2016-08-19] MEDS: predniSONE 20 MG TAB PO SCH (18:06)
[2016-08-19] MEDS: HYDROCODONE/APAP 5/325 TAB PO PRN (22:20)
[2016-08-20] MEDS: HYDROCODONE/APAP 5/325 TAB PO PRN ×2 (02:41→20:39)
[2016-08-20] MEDS: NS 1,000 ML IV SCH (02:41)
[2016-08-20] MEDS: IPRATROPIUM/ALBUTEROL 3 ML DEYVIAL IH SCH ×4 (05:49→21:16)
[2016-08-20] MEDS: NICOTINE 14 MG/24 HR PATCH TD SCH (10:13)
[2016-08-20] MEDS: predniSONE 20 MG TAB PO SCH ×2 (10:13→17:49)
[2016-08-20] MEDS: ENOXAPARIN 40 MG/0.4 ML SYR SC SCH (10:15)
[2016-08-20] MEDS: AZITHROMYCIN IV 500 MG in D5W 250 ML IV SCH (10:15)
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
[2016-08-21] MEDS: IPRATROPIUM/ALBUTEROL 3 ML DEYVIAL IH SCH ×3 (06:13→16:43)
[2016-08-21] MEDS: ENOXAPARIN 40 MG/0.4 ML SYR SC SCH (09:02)
[2016-08-21] MEDS: NICOTINE 14 MG/24 HR PATCH TD SCH (09:03)
[2016-08-21] MEDS: predniSONE 20 MG TAB PO SCH ×2 (09:03→18:06)
[2016-08-21] MEDS: AZITHROMYCIN IV 500 MG in D5W 250 ML IV SCH (09:03)
[2016-08-21] MEDS: HYDROCODONE/APAP 5/325 TAB PO PRN ×2 (11:13→22:32)
--- NOTE | 2016-08-21 17:22 | HOSPPROG ---
Hospitalist Progress Note Assessment/Plan: DIAGNOSES: -Acute on chronic hypoxemic respiratory failure / COPD exacerbation -chest pain with high D-dimer no PE on CT and no pneumonia -exertional CP, ruled out [place], no ischemia on lexiscan imaging -Absence of fever -History of nonobstructive coronary artery disease -severe deconditioning and gait instability -situational depression At this time it is hard to tell how close she is to baseline with her COPD but I suspect fairly close. She is not really able to ambulate well at all on room air, and she does not at present have any insurance to get home O2. I did speak to on of our respiratory therapists who says usually the home O2 companies request that patients use credit cards to pay for O2 while waiting for insurance (she is medicaid pending but it is not clear how soon that will come thru, ? by end of month). Will see if supervisor home restoration service has any thoughts on how to help get O2 for pt w pending insurance. PLANS: -at this time she is unstable for discharge due to inability to ambulate, due to deconditioning and copd -will have her spend more time in chair and do a few more walks tonight -continue current medications -she would be a candidate for SNF but has no insurance -home O2 will be indicated but with no insurance she will have trouble with that also At discharge will refer her to [facility] as they can offer better help with cost of medications and other services SUBJECTIVE: main complaint today is pain in L forearm proximal to her IV (this was a new cath placed last evening) pain started this afternoon, rated as severe by pt does not hurt when medications or flushes given OBJECTIVE Vitals reviewed: tachycardia resolved, pulse in 70s, otherwise stable without fever Exam: alert oriented skin warm dry color ok resps not labored lungs clear BSs slightly diminished but without notably prolonged expiration; no wheeze rales or rhonchi heart regular abd soft nondistended nontender, bowel sounds present limbs L arm peripheral IV looks ok, no phlebitis, cord, cellulitis, bleed or bruise, or other concerning findings iv site ok I have reviewed nuclear myocardial images w Dr Mandujano. No signs of ischemia. There is some thinning which could be old [place] which seems unlikely with EF of 70% , or more likely artifact. Objective: Vital Signs Temp Pulse Resp BP Pulse Ox 36.8 C 84 20 133/72 H 93 06/20/17 15:23 08/21/16 16:44 08/21/16 16:44 08/21/16 15:23 08/21/16 16:44 Laboratory Results 08/17/16 04:26 08/17/16 04:26 08/20/16 08/21/16 08/22/16 06:59 06:59 06:59 Intake Total 1300 Output Total 200 2850 Balance 1100 -2850 PT 14.1 SEC (12.0-15.0) 08/17/16 04:26 INR 1.10 (0.83-1.16) 08/17/16 04:26 ICD10 Worksheet Patient Problems: Problems Problem Status Onset Bronchitis Acute COPD exacerbation Acute Hypoxia Acute
[2016-08-21] MEDS: IPRATROPIUM HFA INHALER IH SCH (20:53)
[2016-08-21] MEDS: ALBUTEROL 200 PUFFS/18 GM MDI IH SCH (20:54)
[2016-08-22] MEDS: ALBUTEROL 200 PUFFS/18 GM MDI IH SCH ×6 (04:30→21:04)
[2016-08-22] MEDS: IPRATROPIUM HFA INHALER IH SCH ×4 (05:29→21:04)
[2016-08-22 07:37] VITALS: TEMP 97.8
[2016-08-22] MEDS: HYDROCODONE/APAP 5/325 TAB PO PRN ×2 (07:45→15:18)
[2016-08-22] MEDS: predniSONE 20 MG TAB PO SCH (07:45)
[2016-08-22] MEDS: ENOXAPARIN 40 MG/0.4 ML SYR SC SCH (09:20)
[2016-08-22] MEDS: NICOTINE 14 MG/24 HR PATCH TD SCH (09:21)
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
[2016-08-22 15:15] VITALS: BP 105/63
[2016-08-22 16:33] VITALS: PULSE 71; RESP 20
[2016-08-22 16:54] VITALS: O2SAT 84
--- NOTE | 2016-08-23 07:31 | GDS ---
[f rep st] DISCHARGE SUMMARY DISCHARGE DIAGNOSES: 1. Acute and possibly chronic hypoxemic respiratory failure secondary to chronic obstructive pulmon lizzette disease. 2. An acute exacerbation of chronic obstructive pulmonary disease. 3. Nonobstructive coronary artery disease. 4. Depression. IMAGING STUDIES/PROCEDURES: 1. Echocardiogram, August 16, showed a normal left ventricular ejection fraction of 65% to 70%. Mild to moderate mitral regurgitation, mild tricuspid regurgitation. Right ventricular systolic pressur e of 29. 2. CT pulmonary angiogram, August 17, was negative for pulmonary embolism though showed findings cons istent with emphysema and bronchitis. 3. Nuclear medicine myocardial perfusion scan, August 20, showed normal left ventricular ejection fra ction of 70% without wall motion abnormalities, without evidence of ischemia. CONSULTATIONS: None. HISTORY OF DETAILS: Please see the history and physical dated August 16. In brief the patient is a 61-year-old female, with history of COPD and coronary artery disease, pres ented to the emergency department with shortness of breath. She was admitted to the hospital for ac ayaan exacerbation of COPD and associated hypoxemia. HOSPITAL COURSE: The patient was admitted to the medical-surgical unit. She was treated with IV st eroids and nebulizers. She completed a 5 day course of azithromycin. She also completed 6 days of steroid burst therapy which will not be continued at discharge. Given her persistent symptoms, she underwent further coronary risk stratification with a negative Lexiscan as above. Her wheezing had essentially resolved at the time of discharge; however, she remained hypoxemic requiring 2 L of oxyg en. She was able to get on Medicaid and thus home oxygen was ordered at discharge. DISPOSITION: Patient was discharged home in stable condition. FOLLOWUP: Patient is to follow up with the [facility], to establish primary care. DISCHARGE MEDICATIONS: Please see [facility] for complete updated outpatient medication list. New medications on discharge include; 1. Albuterol inhaler. 2. Advair 250/50, 1 puff inhaled twice daily. 3. Ipratropium 2 puffs inhaled 4 times daily. 4. NicoDerm patch 14 mg, #14. /[id number]/MODL
== END 2016-08-22 22:16 | disposition home or self-care (01) | DRG 190 ==
LOC: OBSVTOIN 23:05 → F1N 08-17 00:14 → F3E 08-17 17:25
PROVIDERS: ADMIT Internal Medicine; ATTEND Internal Medicine
DX: J44.1 Chronic obstructive pulmonary disease with (acute) exacerbation (principal); J96.01 Acute respiratory failure with hypoxia; F17.210 Nicotine dependence, cigarettes, uncomplicated; I25.10 Atherosclerotic heart disease of native coronary artery without angina pectoris; F32.9 Major depressive disorder, single episode, unspecified
CPT/HCPCS: 96365; 97161-GP; 97166-GO; A9500; J0456; J1650; J1956; J2785; Q9967

== ENCOUNTER 2017-02-21 18:54 | Emergency (ER) | payer MEDICAID ==
[2017-02-21] MEDS ORDERED: IBUPROFEN 600 MG TAB PO ONE ×2 (19:28→19:29)
--- NOTE | 2017-02-21 19:46 | EDPHY ---
H & P Stated Complaint: fall, L side pain Time Seen by Provider: 02/21/17 19:12 HPI/ROS: Chief Complaint: Left side pain status post fall HPI: 61-year-old woman was walking her grandchildren home from school today which is not ability eyes landing on her left hand side. She did not hit her head. She had no loss of consciousness. She did get herself with the left hand. She has been complaining of upper back pain and left-sided chest pain since the fall. No shortness of breath. She does wear oxygen for COPD. No abdominal pain. No nausea or vomiting. She has been ambulating with pain in her mid back. No numbness or weakness. Is not on any blood thinning medications. Does not hurt to take a deep breath. ROS: 10 point Review of Systems is negative except as noted in the HPI. PMH: COPD Social History: Remote history of smoking, no alcohol, no recreational drug use Family History: non-contributory Physical Exam: Gen: Awake, Alert, No Distress HEENT: Nose: no rhinorrhea Eyes: PERRLA, EOMI Mouth: Moist mucosa Neck: Supple, no JVD Chest: Left lateral rib tenderness to palpation., lungs clear to auscultation Heart: S1, S2 normal, no murmur Abd: Soft, non-tender, no guarding Back: no CVA tenderness, she is midline tenderness about T7 with moderate left paraspinal tenderness, no lumbar tenderness Ext: no edema, non-tender Skin: no rash Neuro: CN II-XII intact, Sensation grossly intact, Strength 5/5 in bilateral upper and lower extremities - Personal History Current Tetanus/Diphtheria Vaccine: Yes Current Tetanus Diphtheria and Acellular Pertussis (TDAP): Yes - Medical/Surgical History Hx Asthma: No Hx Chronic Respiratory Disease: Yes Hx Diabetes: No Hx Cardiac Disease: No Hx Renal Disease: No Hx Cirrhosis: No Hx Alcoholism: No Hx HIV/AIDS: No Hx Splenectomy or Spleen Trauma: No Other PMH: PSHx: "2 ft of bowels removed", SBO, appendectomy, hysterectomy, R hand reconstructive sx, L knee sx, COPD - Social History Smoking Status: Current some day smoker Constitutional: Initial Vital Signs Temperature (C) 3 C L 02/21/17 18:59 Heart Rate 89 02/21/17 18:59 Respiratory Rate 28 H 02/21/17 18:59 Blood Pressure 132/91 H 02/21/17 18:59 O2 Sat (%) 95 02/21/17 18:59 O2 Delivery Mode Nasal Cannula Allergies/Adverse Reactions: honey Allergy (Verified 02/21/17 18:58) Latex, Natural Rubber Allergy (Verified 02/21/17 18:58) strawberry Allergy (Verified 02/21/17 18:58) sulfur dioxide Allergy (Verified 02/21/17 18:58) Home Medications: Medication Instructions Recorded Acetaminophen [Tylenol ES 500 mg 500 - 1,000 mg PO Q6 PRN 08/17/16 (*)] Albuterol [Ventolin Hfa Inhaler] 1 - 2 puffs IH Q4HRS PRN #1 mdi 08/22/16 Fluticasone/Salmeter 250/50Mcg 1 puffs IH BID #1 disk 08/22/16 [Advair 250/50 (*)] Ipratropium [Atrovent Hfa (*)] 2 puffs IH QID #1 mdi 08/22/16 Medical Decision Making - Diagnostics Imaging Results: Imaging Impressions Chest X-Ray 02/21/17 19:20 Impression: Nothing acute identified. Thoracic Spine X-Ray 02/21/17 19:21 Impression: Nothing acute identified. If suspicion is high for an occult compression, then noncontrast MRI could be performed to assess for bone marrow edema. Imaging: I viewed and interpreted images myself ED Course/Re-evaluation: No acute findings on x-rays. Patient is improved with ibuprofen. Will discharge with follow-up with primary care physician. Return for any concerns. - Data Points Medications Given: Discontinued Medications Ibuprofen (Motrin) 600 mg PO EDNOW ONE Stop: 02/21/17 19:30 Last Admin: 02/21/17 19:45 Dose: 600 mg Departure - Departure Disposition: Home, Routine, Self-Care Clinical Impression: Chest wall contusion, Back pain Condition: Good Instructions: Chest Wall Pain (ED), Back Pain (ED) Additional Instructions: Take ibuprofen, 600 mg, 3 times a day. You may also take acetaminophen, 1000 mg every 6 hours. Make sure to remain active. Did do not lay in bed or sit in a chair for long periods. It is important to remain active and keep your back moving in order to improve. Please see the attached back exercise instructions. Follow up with primary care physician in 3-4 days for further evaluation. Return to the emergency department for increasing pain, shortness of breath, fevers, chills, cough, or any other concerns. Referrals: Ana Laura Lewis, PAC [Primary Care Provider] - As per Instructions
[2017-02-21 21:36] VITALS: BP 117/64; PULSE 79; RESP 18; TEMP 98.1; O2SAT 99
== END 2017-02-21 21:36 | disposition home or self-care (01) ==
DX: S20.219A Contusion of unspecified front wall of thorax, initial encounter (principal); J44.9 Chronic obstructive pulmonary disease, unspecified; F17.200 Nicotine dependence, unspecified, uncomplicated; Z91.040 Latex allergy status; W18.39XA Other fall on same level, initial encounter; Y99.8 Other external cause status; Y93.01 Activity, walking, marching and hiking

== ENCOUNTER → 2017-03-27 | Outpatient (CLI) | payer MEDICAID | LOC: FLAB 16:44 | DX: M51.36 Other intervertebral disc degeneration, lumbar region (principal); M25.551 Pain in right hip ==

== ENCOUNTER 2017-07-20 16:41 | Emergency (ER) | payer MEDICAID ==
--- NOTE | 2017-07-20 16:49 | EDPHY ---
H & P Time Seen by Provider: 07/20/17 16:47 HPI/ROS: Chief complaint. Tongue swelling HPI. 62-year-old female with multiple complaints. She knows mild tongue swelling yesterday. She has had no trouble swallowing or eating. She also has diarrhea that began yesterday. She has had at least 1 week of sharp stabbing left chest pain that is more present with watching television and no change with breathing or exertion. She has had a cough that is productive of yellowish sputum. No fever. No shortness of breath. She does use 24/7 oxygen at home. She has no sinus drainage as well. Nausea without vomiting. Some churning low abdominal pain before having diarrhea. No urinary symptoms. No unusual leg pain or swelling. ROS Constitutional. no fever/chills, no weakness Eyes. no problems with vision ENT. Tongue swelling and sinus drainage Cardiovascular. Sharp left-sided chest pain Respiratory. Cough without shortness of breath Abdominal. No abdominal pain but nausea and diarrhea . no problems urinating MS. no calf pain/swelling, no neck/back pain, no joint pain Skin. no rash Lymph. no swollen glands Neuro. no headache, no dizziness, no difficulty walking or with speech Past Medical/Surgical History: Past medical history is significant for colectomy for unclear reason, small- bowel obstruction, appendectomy, hysterectomy, COPD on 24/7 oxygen Social History: , daily smoker, no alcohol Smoking Status: Current some day smoker Physical Exam: General Appearance: Alert well-developed female mild distress vital signs are stable Eyes: Pupils equal and round no pallor or injection. ENT, pharynx slightly injected without exudate. Mucous membranes are moist. I cannot appreciate any tongue swelling. There is no stridor. Patient is swallowing and handling secretions and speaking in a normal voice. Respiratory: End-expiratory wheezing Cardiovascular: Regular rate and rhythm. Gastrointestinal: Abdomen is soft and nontender, no masses, bowel sounds normal. Neurological: Awake and alert, sensory and motor exams grossly normal. Skin: Warm and dry, no rashes. Musculoskeletal: Neck is supple nontender. Extremities symmetrical, full range of motion. Psychiatric: Patient is oriented X 3, there is no agitation. Constitutional: Initial Vital Signs Temperature (C) 36.7 C 07/20/17 16:51 Heart Rate 90 07/20/17 16:51 Respiratory Rate 12 07/20/17 16:51 Blood Pressure 118/82 H 07/20/17 16:51 O2 Sat (%) 97 07/20/17 16:51 O2 Delivery Mode Nasal Cannula O2 (L/minute) 3 Allergies/Adverse Reactions: honey Allergy (Verified 02/21/17 18:58) Latex, Natural Rubber Allergy (Verified 02/21/17 18:58) strawberry Allergy (Verified 02/21/17 18:58) sulfur dioxide Allergy (Verified 02/21/17 18:58) Home Medications: Medication Instructions Recorded Advair 250/50 (*) 07/20/17 Atrovent Hfa (*) 07/20/17 Azithromycin [Zithromax] 250 mg PO DAILY #6 tab 07/20/17 Duoneb (*) 07/20/17 Famotidine 07/20/17 Proair Hfa 07/20/17 predniSONE 40 mg PO DAILY #8 tablet 07/20/17 Medical Decision Making - Diagnostics EKG Interpretation: EKG interpreted by me shows normal sinus rhythm normal interval and axis. QRS is normal there is no significant ST elevation or depression. There is no arrhythmia. The rate is 86 Imaging Results: Imaging Impressions Chest X-Ray 07/20/17 17:26 Impression: Question minimal bronchitis. No other findings for acute cardiopulmonary abnormality. Procedures: IV normal saline, monitor DuoNeb updraft Patient is given prednisone and Zithromax in the emergency department ED Course/Re-evaluation: Re-evaluation at 6:30 p.m.. Patient is stable. She and I discussed imaging, EKG, lab results. Discussed treatment plan including criteria for return importance of follow-up and further evaluation. She expresses understanding and agreement Differential Diagnosis: I considered pneumonia, COPD exacerbation, acute coronary syndrome. Id this appears to be bronchitis in COPD exacerbation. - Data Points Laboratory Results: Laboratory Results 07/20/17 17:00 07/20/17 17:00 07/20/17 07/20/17 17:00 17:00 WBC 8.97 10^3/uL 10^3/uL (3.80-9.50) RBC 4.77 10^6/uL 10^6/uL (4.18-5.33) Hgb 14.1 g/dL g/dL (12.6-16.3) Hct 43.2 % % (38.0-47.0) MCV 90.6 fL fL (81.5-99.8) MCH 29.6 pg pg (27.9-34.1) MCHC 32.6 g/dL g/dL (32.4-36.7) RDW 13.2 % % (11.5-15.2) Plt Count 272 10^3/uL 10^3/uL (150-400) MPV 10.8 fL fL (8.7-11.7) Neut % (Auto) 57.9 % % (39.3-74.2) Lymph % (Auto) 33.3 % % (15.0-45.0) Crawford % (Auto) 6.6 % % (4.5-13.0) Eos % (Auto) 1.6 % % (0.6-7.6) Baso % (Auto) 0.3 % % (0.3-1.7) Nucleat RBC Rel Count 0.0 % % (0.0-0.2) Absolute Neuts (auto) 5.19 10^3/uL 10^3/uL (1.70-6.50) Absolute Lymphs (auto) 2.99 10^3/uL 10^3/uL (1.00-3.00) Absolute Monos (auto) 0.59 10^3/uL 10^3/uL (0.30-0.80) Absolute Eos (auto) 0.14 10^3/uL 10^3/uL (0.03-0.40) Absolute Basos (auto) 0.03 10^3/uL 10^3/uL (0.02-0.10) Absolute Nucleated RBC 0.00 10^3/uL 10^3/uL (0-0.01) Immature Gran % 0.3 % % (0.0-1.1) Immature Gran # 0.03 10^3/uL 10^3/uL (0.00-0.10) Sodium 141 mEq/L mEq/L (135-145) Potassium 4.6 mEq/L mEq/L (3.3-5.0) Chloride 102 mEq/L mEq/L (97-110) Carbon Dioxide 26 mEq/l mEq/l (22-31) Anion Gap 13 mEq/L mEq/L (8-16) BUN 22 mg/dL mg/dL (7-23) Creatinine 0.7 mg/dL mg/dL (0.6-1.0) Estimated GFR > 60 Glucose 96 mg/dL mg/dL (70-100) Calcium 8.7 mg/dL mg/dL (8.5-10.4) Troponin I < 0.012 ng/mL ng/mL (0.000-0.034) Medications Given: Discontinued Medications Albuterol/Ipratropium (Duoneb) 3 ml IH EDNOW ONE Stop: 07/20/17 17:27 Last Admin: 07/20/17 17:50 Dose: 3 ml Ondansetron HCl (Zofran) 4 mg IVP EDNOW ONE Stop: 07/20/17 17:28 Last Admin: 07/20/17 17:50 Dose: 4 mg Departure - Departure Disposition: Home, Routine, Self-Care Clinical Impression: COPD exacerbation Condition: Good Instructions: COPD (Chronic Obstructive Pulmonary Disease) (ED) Additional Instructions: Continue regular medications. Zithromax is antibiotic Prednisone next few days to help with breathing. Return for worsening symptoms. Recheck in 2-3 days if not improving Referrals: Ana Laura Lewis, PAC [Primary Care Provider] - 2-3 days, if not improved Prescriptions: Azithromycin [Zithromax] 250 mg PO DAILY #6 tab predniSONE 40 mg PO DAILY #8 tablet
--- NOTE | 2017-07-20 17:02 | CPEKG ---
Heart Rate: 86 RR Interval: 698 P-R Interval: 128 QRSD Interval: 76 QT Interval: 364 QTC Interval: 436 P [place]: 66 QRS [place]: 28 T Wave [place]: 67 EKG Severity - NORMAL ECG - EKG Impression: SINUS RHYTHM Electronically Signed By: Vishal Gracia 20-Jul-2017 19:56:41
[2017-07-20] MEDS ORDERED: IPRATROPIUM/ALBUTEROL 3 ML DEYVIAL IH ONE (17:26)
[2017-07-20] MEDS ORDERED: ONDANSETRON 4 MG/2 ML VIAL IVP ONE (17:27)
[2017-07-20 17:36] LABS: PLATELET COUNT 272 10^3/uL (150-400)
[2017-07-20] MEDS ORDERED: AZITHROMYCIN 250 MG TAB PO ONE (18:37)
[2017-07-20] MEDS ORDERED: predniSONE 20 MG TAB PO ONE (18:40)
[2017-07-20 18:53] VITALS: BP 116/67
== END 2017-07-20 19:17 | disposition home or self-care (01) ==
DX: J44.1 Chronic obstructive pulmonary disease with (acute) exacerbation (principal); F17.200 Nicotine dependence, unspecified, uncomplicated; Z91.040 Latex allergy status
CPT/HCPCS: 96374; J2405; J7512

== ENCOUNTER → 2017-08-20 | Outpatient (CLI) | payer MEDICAID | LOC: FIMAGING 10:38 | PROVIDERS: ATTEND Physician Assistant | DX: D17.22 Benign lipomatous neoplasm of skin and subcutaneous tissue of left arm (principal) ==